=== PATIENT | male | born 1940 | race Caucasian/White ===

== ENCOUNTER 2022-04-23 13:54 | Emergency (ER) | payer MEDICARE, BC ==
[2022-04-23 15:21] LABS: CORONAVIRUS COVID-19 NAA NEGATIVE (NEGATIVE)
[2022-04-23] MEDS ORDERED: Sodium Bicarbonate 150 MEQ in Dextrose 5% in Water 1,000 ML IV ONE ×2 (15:43)
[2022-04-23] MEDS ORDERED: Calcium Gluconate 10% 1 GM/10 ML SDV IVPUSH STA (15:43)
== END 2022-04-23 18:12 ==
LOC: JD.ED 13:54
DX: E87.5 Hyperkalemia (principal); R73.9 Hyperglycemia, unspecified; N28.9 Disorder of kidney and ureter, unspecified; I49.8 Other specified cardiac arrhythmias; I25.10 Atherosclerotic heart disease of native coronary artery without angina pectoris; E78.00 Pure hypercholesterolemia, unspecified; I10 Essential (primary) hypertension; I25.2 Old myocardial infarction; E66.9 Obesity, unspecified; Z68.30 Body mass index [BMI] 30.0-30.9, adult; Z87.891 Personal history of nicotine dependence; Z88.5 Allergy status to narcotic agent; Z88.1 Allergy status to other antibiotic agents; Z20.822 Contact with and (suspected) exposure to COVID-19
CPT/HCPCS: 0241U; 36415; 71045; 80053; 82947; 83735; 83880; 84484; 85025; 85379; 93005; 96365; 96375; 99285; J0610; J7060; 93010; 99284; J3490

== ENCOUNTER 2022-08-01 03:07 | Emergency (ER) | payer MEDICARE, BC ==
[2022-08-01] MEDS ORDERED: LORazepam 2 MG/ML SDV IVPUSH ONE (03:14)
[2022-08-01] MEDS ORDERED: LORazepam 2 MG/ML SDV ONE (03:14)
[2022-08-01] MEDS ORDERED: Furosemide 40 MG/4 ML VIAL IVPUSH ONE (03:23)
[2022-08-01 03:24] LABS: BASE EXCESS VENOUS -7.8 (-4.0-2.0); BICARBONATE,VENOUS 22.7 meq/L (22-26); O2 SATURATION VENOUS 91.4; PCO2 VENOUS 68.2 mmHg (41-51); PH,VENOUS 7.15 (7.30-7.40)
[2022-08-01] MEDS ORDERED: methylPREDNISolone Sodium Succinate 125 MG/2 ML SDV IVPUSH ONE (03:24)
[2022-08-01] MEDS ORDERED: Piperacillin/Tazobactam 4.5 GM in Sodium Chloride 0.9% 100 ML IV ONE (03:33)
[2022-08-01 03:46] LABS: BASOPHILS ABSOLUTE AUTO 0.05 K/mm3 (0.01-0.08); BASOPHILS PERCENT AUTO 0.4 % (0.1-1.2); EOSINOPHILS ABSOLUTE AUTO 0.31 K/mm3 (0.04-0.54); EOSINOPHILS PERCENT AUTO 2.3 (0.8-7.0); HEMATOCRIT 48.5 % (40.1-51.0); HEMOGLOBIN 15.5 gm/dl (13.7-17.5); IMMATURE GRAN ABSOLUTE AUTO 0.03 K/mm3 (0.00-0.10); IMMATURE GRAN PERCENT AUTO 0.2 % (<=1.0); LYMPHOCYTES ABSOLUTE AUTO 2.53 K/mm3 (1.32-3.57); LYMPHOCYTES PERCENT AUTO 18.4 % (21.8-53.1); MEAN CORPUSCULAR HEMOGLOBIN 28.6 pg (25.7-32.2); MEAN CORPUSCULAR VOLUME 89.5 fl (79.0-92.2); MEAN PLATELET VOLUME 9.2 fl (9.4-12.3); MONOCYTES ABSOLUTE AUTO 1.76 K/mm3 (0.30-0.82); MONOCYTES PERCENT AUTO 12.8 % (5.3-12.2); NEUTROPHILS ABSOLUTE AUTO 9.08 K/mm3 (1.78-5.38); NEUTROPHILS PERCENT AUTO 65.9 % (34.0-67.9); PLATELET COUNT,PLT 286 K/mm3 (163-337); RED BLOOD CELL COUNT 5.42 M/mm3 (4.63-6.08); WHITE BLOOD CELL COUNT,WBC 13.76 K/mm3 (4.23-9.07)
[2022-08-01 04:18] LABS: A/G RATIO 0.9 (1-2); ALBUMIN 3.5 g/dl (3.4-5.0); ANION GAP 14.4 (5-15); BILIRUBIN TOTAL 0.8 mg/dL (0.2-1.0); BUN/CREATININE RATIO 14.2 (14-18); CALCIUM 8.6 mg/dL (8.5-10.1); CREATININE 1.9 mg/dL (0.7-1.3); EST CRCL DRUG DOSING (CG) 30.42 mL/min; POTASSIUM,K 4.4 mEq/L (3.5-5.1); PROTEIN TOTAL,TP 7.5 g/dl (6.4-8.2)
[2022-08-01] MEDS ORDERED: VANCOmycin 1.5 GM/300 ML 1.5 GM in Premix Bag 1 BAG IV ONE (04:18)
[2022-08-01 04:43] LABS: SLIDE REVIEW ABNORMAL SMEAR
[2022-08-01 05:06] LABS: CORONAVIRUS COVID-19 NAA NEGATIVE (NEGATIVE); INFLUENZA A NAA NEGATIVE (NEGATIVE)
[2022-08-01 05:25] LABS: BASE EXCESS ARTERIAL -4.5 (-2-2.0); BICARBONATE,ARTERIAL 20.7 meq/L (22.0-26.0); O2 SATURATION ARTERIAL 95.9 % (96.0-97.0); PCO2 ARTERIAL 40.8 mmHg (35.0-45.0)
== END 2022-08-01 05:57 ==
LOC: JD.ED 03:07
DX: J18.9 Pneumonia, unspecified organism (principal); R06.03 Acute respiratory distress; R77.8 Other specified abnormalities of plasma proteins; I25.10 Atherosclerotic heart disease of native coronary artery without angina pectoris; I10 Essential (primary) hypertension; I25.2 Old myocardial infarction; E78.00 Pure hypercholesterolemia, unspecified; E66.9 Obesity, unspecified; Z68.28 Body mass index [BMI] 28.0-28.9, adult; Z88.1 Allergy status to other antibiotic agents; Z88.5 Allergy status to narcotic agent; Z79.899 Other long term (current) drug therapy; Z20.822 Contact with and (suspected) exposure to COVID-19
CPT/HCPCS: 0240U; 36415; 36600; 71045; 80053; 82803; 83605; 83880; 84484; 85025; 87040; 93005; 94660; 96365; 96367; 96375; 99285; J1940; J2060; J2543; J2930; J3370; J3490

== ENCOUNTER 2023-10-01 08:21 | Observation (INO) | payer MEDICARE, BC ==
[2023-10-01 09:04] LABS: BASOPHILS PERCENT AUTO 0.5 % (0.0-1.0); HEMATOCRIT 46.5 % (42.0-52.0); HEMOGLOBIN 15.3 gm/dl (14.0-18.0); IMMATURE GRAN ABSOLUTE AUTO 0.02 K/mm3 (0.00-0.05); IMMATURE GRAN PERCENT AUTO 0.3 % (0.0-0.4); LYMPHOCYTES ABSOLUTE AUTO 0.9 K/mm3 (1.0-4.8); LYMPHOCYTES PERCENT AUTO 12.5 % (24.0-44.0); MEAN CORPUSCULAR HEMOGLOBIN 29.4 pg (28.0-32.0); MEAN CORPUSCULAR HGB CONC 32.9 g/dl (32.0-36.0); MEAN CORPUSCULAR VOLUME 89.4 fl (83.0-99.0); MONOCYTES PERCENT AUTO 13.3 % (0.0-8.0); NEUTROPHILS ABSOLUTE AUTO 5.4 K/mm3 (1.8-7.7); NEUTROPHILS PERCENT AUTO 73.4 % (41.0-71.0); PLATELET COUNT,PLT 152 K/mm3 (150-400); WHITE BLOOD CELL COUNT,WBC 7.38 K/mm3 (3.9-11.3)
[2023-10-01] MEDS: Iopamidol 755 Mg/ML 100 ML Bottle IVPUSH ONE (09:10)
[2023-10-01] MEDS: Sodium Chloride 0.9% 45 ML IV SCH (09:10)
[2023-10-01 09:17] LABS: INR 1.04
[2023-10-01 09:26] LABS: ALBUMIN 3.3 g/dl (3.4-5.0); ANION GAP 14.1 (5-15); BILIRUBIN TOTAL 0.6 mg/dL (0.2-1.0); BUN/CREATININE RATIO 17.5 (14-18); CALCIUM 9.1 mg/dL (8.5-10.1); CREATININE 2.4 mg/dL (0.7-1.3); MAGNESIUM 2.2 mg/dL (1.8-2.4); POTASSIUM,K 4.1 mEq/L (3.5-5.1); PROTEIN TOTAL,TP 6.5 g/dl (6.4-8.2)
[2023-10-01 09:42] LABS: EST CRCL DRUG DOSING (CG) 22.17 mL/min
[2023-10-01 10:21] LABS: APPEARANCE,URINE CLEAR (Clear); BILIRUBIN,URINE NEGATIVE (Negative); COLOR,URINE YELLOW (Yellow); GLUCOSE,URINE 3+ (Negative); KETONES,URINE NEGATIVE (Negative); LEUKOCYTE ESTERASE,URINE NEGATIVE (Negative); NITRITE,URINE NEGATIVE (Negative); OCCULT BLOOD,URINE NEGATIVE (Negative); PROTEIN,URINE NEGATIVE (Negative); UROBILINOGEN,URINE 0.2 (0.2-1.0)
[2023-10-01] MEDS: Sodium Chloride 0.9% 1,000 ML IV ONE (11:23)
[2023-10-01] MEDS ORDERED: Acetaminophen 325 MG Tab PO PRN (13:28)
[2023-10-01] MEDS ORDERED: Nitroglycerin 0.4 MG Tab.SL SL PRN (13:49)
[2023-10-01] MEDS ORDERED: Acetaminophen/HYDROcodone 325-5 MG Tab PO PRN (13:49)
[2023-10-01] MEDS: Sodium Chloride 0.9% 1,000 ML IV SCH (13:57)
[2023-10-01] MEDS ORDERED: Sennosides/Docusate Sodium 50-8.6 MG Tab PO PRN (14:04)
[2023-10-01] MEDS ORDERED: Melatonin 3 MG Tab PO PRN (14:04)
[2023-10-01] MEDS ORDERED: 50% Dextrose in Water 50 ML Syringe IVPUSH PRN (14:12)
[2023-10-01] MEDS: Amoxicillin/Clavulanate K 500-125 MG Tab PO SCH (15:19)
[2023-10-01] MEDS: Insulin Lispro 100 Unit/ML 3 ML KwikPen SUBCUT SCH (17:34)
[2023-10-01] MEDS: Carvedilol 6.25 MG Tab PO SCH (17:35)
[2023-10-01] MEDS: Apixaban 5 MG Tab PO SCH (20:30)
[2023-10-01] MEDS: Acetaminophen/HYDROcodone 325-5 MG Tab PO SCH (20:32)
[2023-10-02 05:28] LABS: HEMOGLOBIN A1C 7.5 %
[2023-10-02 05:33] LABS: ANION GAP 12.6 (5-15); BUN/CREATININE RATIO 14.3 (14-18); CALCIUM 8.9 mg/dL (8.5-10.1); CREATININE 2.3 mg/dL (0.7-1.3); EST CRCL DRUG DOSING (CG) 23.13 mL/min; PHOSPHORUS 3.6 mg/dL (2.6-4.7); POTASSIUM,K 4.6 mEq/L (3.5-5.1)
[2023-10-02] MEDS: amLODIPine 10 MG Tab PO SCH (08:15)
[2023-10-02] MEDS: Aspirin 81 MG Tab.EC PO SCH (08:15)
[2023-10-02] MEDS: Ezetimibe 10 MG Tab PO SCH (08:16)
[2023-10-02] MEDS: atorvaSTATin 40 MG Tab PO SCH (08:16)
[2023-10-02] MEDS ORDERED: Apixaban 2.5 MG Tab PO SCH (21:00)
== END 2023-10-02 13:57 | disposition home or self-care (01) ==
LOC: JD.ED 08:21 → JD.MS 10:35
PROVIDERS: ADMIT Student in an Organized Health Care Education/Training Program; ATTEND Student in an Organized Health Care Education/Training Program
DX: N17.9 Acute kidney failure, unspecified (principal); G45.9 Transient cerebral ischemic attack, unspecified; I11.0 Hypertensive heart disease with heart failure; I50.9 Heart failure, unspecified; E11.9 Type 2 diabetes mellitus without complications; E78.00 Pure hypercholesterolemia, unspecified; I25.10 Atherosclerotic heart disease of native coronary artery without angina pectoris; Z87.891 Personal history of nicotine dependence; Z79.82 Long term (current) use of aspirin; Z79.02 Long term (current) use of antithrombotics/antiplatelets; Z79.899 Other long term (current) drug therapy; Z88.1 Allergy status to other antibiotic agents; Z88.5 Allergy status to narcotic agent
CPT/HCPCS: 36415; 70450; 70496; 70498; 71045; 80048; 80053; 81003; 82947; 83036; 83735; 84100; 84484; 85025; 85610; 93005; 93306; 94760; 96360; 97110; 97161; 99285; A9270; G0378; J1815; J3490; J7030; Q9967; 93010

== ENCOUNTER 2023-10-08 13:16 | Emergency (ER) | payer MEDICARE, BC ==
[2023-10-08 14:18] LABS: BASOPHILS PERCENT AUTO 0.5 % (0.0-1.0); HEMATOCRIT 46.5 % (42.0-52.0); HEMOGLOBIN 15.1 gm/dl (14.0-18.0); IMMATURE GRAN ABSOLUTE AUTO 0.03 K/mm3 (0.00-0.05); IMMATURE GRAN PERCENT AUTO 0.5 % (0.0-0.4); LYMPHOCYTES ABSOLUTE AUTO 1.1 K/mm3 (1.0-4.8); LYMPHOCYTES PERCENT AUTO 18.3 % (24.0-44.0); MEAN CORPUSCULAR HEMOGLOBIN 29.5 pg (28.0-32.0); MEAN CORPUSCULAR HGB CONC 32.5 g/dl (32.0-36.0); MEAN CORPUSCULAR VOLUME 90.8 fl (83.0-99.0); MEAN PLATELET VOLUME 8.8 fl (9.4-12.4); MONOCYTES ABSOLUTE AUTO 0.6 K/mm3 (0.0-0.8); MONOCYTES PERCENT AUTO 10.6 % (0.0-8.0); NEUTROPHILS ABSOLUTE AUTO 4.2 K/mm3 (1.8-7.7); NEUTROPHILS PERCENT AUTO 70.1 % (41.0-71.0); PLATELET COUNT,PLT 147 K/mm3 (150-400); RED BLOOD CELL COUNT 5.12 M/mm3 (4.52-5.90); WHITE BLOOD CELL COUNT,WBC 6.05 K/mm3 (3.9-11.3)
[2023-10-08 14:53] LABS: ALBUMIN 3.1 g/dl (3.4-5.0); ANION GAP 13.5 (5-15); BILIRUBIN TOTAL 0.6 mg/dL (0.2-1.0); BUN/CREATININE RATIO 17.7 (14-18); CALCIUM 8.8 mg/dL (8.5-10.1); CREATININE 2.2 mg/dL (0.7-1.3); EST CRCL DRUG DOSING (CG) 24.18 mL/min; POTASSIUM,K 5.5 mEq/L (3.5-5.1); PROTEIN TOTAL,TP 6.2 g/dl (6.4-8.2)
[2023-10-08] MEDS: Insulin Regular, Human 100 Units/ML 10 ML Vial IVPUSH ONE (16:06)
[2023-10-08] MEDS: Insulin Regular, Human 100 Units/ML 3 ML Vial IV ONE (16:09)
[2023-10-08] MEDS: Sodium Chloride 0.9% 10 ML Syringe FLUSH PRN (16:12)
[2023-10-08] MEDS: Furosemide 40 MG/4 ML VIAL IVPUSH ONE (18:24)
== END 2023-10-08 18:46 | disposition home or self-care (01) ==
LOC: JD.ED 13:16
DX: E87.5 Hyperkalemia (principal); R79.89 Other specified abnormal findings of blood chemistry; I10 Essential (primary) hypertension; I25.10 Atherosclerotic heart disease of native coronary artery without angina pectoris; E78.00 Pure hypercholesterolemia, unspecified; I25.2 Old myocardial infarction; E66.9 Obesity, unspecified; Z90.49 Acquired absence of other specified parts of digestive tract; Z95.0 Presence of cardiac pacemaker; Z79.899 Other long term (current) drug therapy; Z79.01 Long term (current) use of anticoagulants; Z79.82 Long term (current) use of aspirin; Z88.1 Allergy status to other antibiotic agents; Z88.5 Allergy status to narcotic agent; Z68.28 Body mass index [BMI] 28.0-28.9, adult
CPT/HCPCS: 36415; 80053; 82947; 83735; 85025; 93005; 99285; J1815; J3490; 93010; 99284

== ENCOUNTER 2024-09-17 03:15 | Emergency (ER) | payer MEDICARE, BC ==
[2024-09-17] MEDS ORDERED: Sodium Chloride 0.9% 10 ML Syringe FLUSH PRN (03:27)
[2024-09-17 04:07] LABS: BASOPHILS ABSOLUTE AUTO 0.0 K/mm3 (0.0-0.2); BASOPHILS PERCENT AUTO 0.4 % (0.0-1.0); EOSINOPHILS ABSOLUTE AUTO 0.0 K/mm3 (0.0-0.4); EOSINOPHILS PERCENT AUTO 0.1 % (0.0-6.0); IMMATURE GRAN ABSOLUTE AUTO 0.03 K/mm3 (0.00-0.05); IMMATURE GRAN PERCENT AUTO 0.4 % (0.0-0.4); LYMPHOCYTES ABSOLUTE AUTO 1.3 K/mm3 (1.0-4.8); LYMPHOCYTES PERCENT AUTO 15.4 % (24.0-44.0); MEAN PLATELET VOLUME 9.2 fl (9.4-12.4); MONOCYTES ABSOLUTE AUTO 1.1 K/mm3 (0.0-0.8); MONOCYTES PERCENT AUTO 12.8 % (0.0-8.0); NEUTROPHILS ABSOLUTE AUTO 6.0 K/mm3 (1.8-7.7); NEUTROPHILS PERCENT AUTO 70.9 % (41.0-71.0); NRBC ABSOLUTE 0.00 (0.00-0.02); NRBC PERCENT 0.0 % (0.0-0.2); PLATELET COUNT,PLT 146 K/mm3 (150-400); RED BLOOD CELL COUNT 5.59 M/mm3 (4.52-5.90); WHITE BLOOD CELL COUNT,WBC 8.44 K/mm3 (3.9-11.3)
[2024-09-17 04:55] LABS: A/G RATIO 1.0 (1-2); ALANINE AMINOTRANSFERASE,ALT 23.0 U/L (16-63); ASPARTATE AMNIOTRANSFERASE,AST 19.0 U/L (15-37); BILIRUBIN TOTAL 0.9 mg/dL (0.2-1.0); BLOOD UREA NITROGEN,BUN 33.0 mg/dL (7-18); CARBON DIOXIDE,CO2 23.0 mEq/L (21-32); CHLORIDE,CL 104.0 mEq/L (98-107); CREATININE 2.2 mg/dL (0.7-1.3); EST CRCL DRUG DOSING (CG) 23.75 mL/min; ESTIMATED GFR 29.0 mL/min (>60); GLUCOSE RANDOM 109.0 mg/dL (70-99); POTASSIUM,K 4.6 mEq/L (3.5-5.1); PROTEIN TOTAL,TP 6.6 g/dl (6.4-8.2); SODIUM,NA 137.0 mEq/L (136-145); TROPONIN I HIGH SENSITIVITY 19.0 pg/mL (<=76)
== END 2024-09-17 05:40 | disposition home or self-care (01) ==
LOC: JD.ED 03:15
DX: R06.02 Shortness of breath (principal); R79.89 Other specified abnormal findings of blood chemistry; I10 Essential (primary) hypertension; I25.2 Old myocardial infarction; I25.10 Atherosclerotic heart disease of native coronary artery without angina pectoris; E66.9 Obesity, unspecified; E78.00 Pure hypercholesterolemia, unspecified; Z79.899 Other long term (current) drug therapy; Z79.82 Long term (current) use of aspirin; Z79.890 Hormone replacement therapy; Z88.5 Allergy status to narcotic agent; Z88.1 Allergy status to other antibiotic agents; Z88.8 Allergy status to other drugs, medicaments and biological substances; Z90.49 Acquired absence of other specified parts of digestive tract; Z68.29 Body mass index [BMI] 29.0-29.9, adult
CPT/HCPCS: 36415; 71045; 71045-26; 80053; 83735; 84484; 85025; 93005; 99285